=== PATIENT | female | born 1975 | race Asian ===

== ENCOUNTER 2019-10-28 19:21 | Emergency (ER) | payer OTHER ==
[~2019-10-28] VITALS: Ht 165.1 cm; Wt 56.7 kg
[2019-10-28 19:26] VITALS: BP_SYST 119
[2019-10-28] MEDS ORDERED: PARO40TA PO (19:33)
[2019-10-28] MEDS ORDERED: CLON2TAB11 PO (19:34)
[2019-10-28] MEDS ORDERED: KETOROLAC TROMETHAMINE 30 MG VIAL IM ONE (21:30)
== END 2019-10-28 21:35 | disposition left against medical advice (07) ==
LOC: SED 19:21
DX: R10.2 Pelvic and perineal pain (principal); F41.9 Anxiety disorder, unspecified
CPT/HCPCS: 81025; 99282; J1885